=== PATIENT | female | born 1980 | race Asian ===

== ENCOUNTER 2018-04-25 08:09 | Emergency (ER) | payer BC, OTHER ==
[~2018-04-25] VITALS: Ht 157.5 cm; Wt 54.0 kg
--- NOTE | 2018-04-25 08:23 | NUR ---
PT BIB [facility] FOR STERNAL CP THAT RADIATES TO LEFT ARM WITH SOB AND NUMBNESS/TINGLING IN HAND AND FEET. PT WAS GIVEN 2MG MORPHINE, 0.4 MG NITRO, AND 324 ASA. BP 127/91, RR 30, FS 81. PT IS ALERT AND ORIENTED. PT IS CONNECTED TO THE MONITOR. CALL LIGHT WITHIN REACH. MD AT BEDSIDE.
--- NOTE | 2018-04-25 08:26 | NUR ---
PT AMBULATED TO BATHROOM WITH STEADY GAIT.
--- NOTE | 2018-04-25 08:56 | NUR ---
PT AMBULATED TO THE BATHROOM WITH STEADY GAIT. AT BEDSIDE. PT IS ALERT, ORIENTED, WITH NAD.
--- NOTE | 2018-04-25 10:10 | NUR ---
Patient given discharge instructions and they have confirmed that they understand the instructions. Patient ambulatory with steady gait.
[2018-04-25 10:11] VITALS: BP 100/59
== END 2018-04-25 10:11 | disposition home or self-care (01) ==
LOC: ED 09:55
DX: F41.1 Generalized anxiety disorder (principal); R20.2 Paresthesia of skin; E07.9 Disorder of thyroid, unspecified
CPT/HCPCS: 71045; 93005; 99283

== ENCOUNTER → 2018-06-18 | Outpatient (CLI) | payer OTHER ==
[~2018-06-18] MED LIST: None at this Time
[2018-06-18 15:05] LABS: BASOPHILS # (AUTO) 0.03 x10^3/uL (0-0.1); BASOPHILS % (AUTO) 1 % (0-1); EOSINOPHILS # (AUTO) 0.09 x10^3/uL (0-0.4); EOSINOPHILS % (AUTO) 1 % (1-7); LYMPHOCYTES % (AUTO) 32 % (22-44); MD NO; MEAN CORPUSCULAR HEMOGLOBIN 27.4 pg (27.0-34.8); MEAN CORPUSCULAR HGB CONC 32.5 g/dL (32.4-35.8); MEAN CORPUSCULAR VOLUME 84.3 fL (80-100); MEAN PLATELET VOLUME 8.5 fL (7.4-10.4); MONOCYTES # (AUTO) 0.35 x10^3/uL (0.2-0.8); MONOCYTES % (AUTO) 5 % (2-9); NEUTROPHILS # (AUTO) 4.21 x10^3/uL (1.8-6.8); NEUTROPHILS % (AUTO) 61 % (42-75); PLATELET COUNT 282 x10^3/uL (130-400); RED BLOOD COUNT 4.59 x10^6/uL (3.82-5.3); RED CELL DISTRIBUTION WIDTH 14.4 % (9.6-15.2)
[2018-06-18 15:14] LABS: ALBUMIN 3.9 g/dL (3.4-5.0); ANION GAP 6 mmol/L (5-15); CALCIUM 8.7 mg/dL (8.5-10.1); CHLORIDE 106 mmol/L (98-107)
[2018-06-18 15:18] LABS: MICROSCOPIC NOT IND
[2018-06-18 15:19] LABS: ALANINE AMINOTRANSFERASE 24 U/L (12-78); ALKALINE PHOSPHATASE 44 U/L (45-117); BILIRUBIN,TOTAL 0.6 mg/dL (0.2-1.0); CREATININE 0.69 mg/dL (0.55-1.02); TOTAL PROTEIN 7.5 g/dL (6.4-8.2)
[2018-06-18 15:25] LABS: CULTURE INDICATED? NO
== END | disposition home or self-care (01) ==
LOC: STAR 14:05
PROVIDERS: ATTEND Obstetrics & Gynecology
DX: Z01.818 Encounter for other preprocedural examination (principal); N84.0 Polyp of corpus uteri; N83.209 Unspecified ovarian cyst, unspecified side
CPT/HCPCS: 36415; 80053; 81003; 84702; 85025

== ENCOUNTER 2018-06-26 10:21 | Day surgery (SDC) | payer OTHER ==
[2018-06-18 15:00] VITALS: BP 122/78
[~2018-06-26] VITALS: Ht 160 cm; Wt 56.3 kg
[2018-06-26] MEDS ORDERED: LACTATED RINGERS 1,000 ML IV SCH (10:47)
[2018-06-26 10:48] VITALS: BP 122/78
[2018-06-26] MEDS ORDERED: BUPIVACAINE/PF 0.25% ONE (10:55)
[2018-06-26] MEDS ORDERED: EPINEPHRINE 1 MG/ML, 1ML ONE (10:55)
[2018-06-26] MEDS ORDERED: SILVER NITRATE STICK TP ONE (10:55)
[2018-06-26 11:01] LABS: HCG UR SG 1.022 (1.003-1.030)
[2018-06-26] MEDS ORDERED: FENTANYL PF 250 MCG/5ML ONE (12:06)
[2018-06-26] MEDS ORDERED: MIDAZOLAM 1 MG/ML, 2ML ONE (12:06)
[2018-06-26] MEDS ORDERED: SUCCINYLCHOLINE 20 MG/ML, 10ML ONE (12:11)
[2018-06-26] MEDS ORDERED: ROCURONIUM 10MG/ML,5ML ONE (12:11)
[2018-06-26] MEDS ORDERED: DEXAMETHASONE 4 MG/ML, 1ML ONE ×2 (12:11)
[2018-06-26] MEDS ORDERED: LIDOCAINE 2%, 6 ML JEL.PF.APP MM ONE (12:11)
[2018-06-26] MEDS ORDERED: PROPOFOL 10 MG/ML, 20ML ONE (12:11)
[2018-06-26] MEDS ORDERED: ONDANSETRON 2MG/ML, 2ML ONE ×2 (12:11)
[2018-06-26] MEDS ORDERED: NEOSTIGMINE 1 MG/ML, 10ML ONE ×2 (12:32→14:06)
[2018-06-26] MEDS ORDERED: ACETAMINOPHEN 325 MG TABLET PO PRN (13:00)
[2018-06-26] MEDS ORDERED: FENTANYL PF 100 MCG/2ML IV PRN (13:00)
[2018-06-26] MEDS ORDERED: ONDANSETRON 2MG/ML, 2ML IV PRN (13:00)
[2018-06-26] MEDS ORDERED: LABETALOL 5MG/ML, 20ML IV PRN (13:00)
[2018-06-26] MEDS ORDERED: PROMETHAZINE 12.5 MG SUPP PR PRN (13:00)
[2018-06-26] MEDS ORDERED: MORPHINE SULFATE 4 MG/ML, 1ML IVPush PRN (13:00)
[2018-06-26] MEDS ORDERED: OXYcodone 5 MG/5 ML ORAL.SOL UDC PO PRN (13:00)
[2018-06-26] MEDS ORDERED: DIAZEPAM 5 MG/ML, 2ML IVPush PRN (13:00)
[2018-06-26] MEDS ORDERED: ALBUTEROL SULFATE 2.5 MG/3 ML NPPB PRN (13:00)
[2018-06-26] MEDS ORDERED: ONDANSETRON ODT 8 MG PO PRN (13:00)
[2018-06-26] MEDS ORDERED: EPHEDRINE 50 MG/ML, 1ML IVPush PRN (13:00)
[2018-06-26] MEDS ORDERED: MIDAZOLAM 1 MG/ML, 2ML IV PRN (13:00)
[2018-06-26] MEDS ORDERED: HYDROmorphone 2 MG/ML, 1ML IVPush PRN (13:00)
[2018-06-26] MEDS ORDERED: HALOPERIDOL 5 MG/ML IV PRN (13:00)
[2018-06-26] MEDS ORDERED: hydrALAzine 20 MG/ML, 1ML IV PRN (13:00)
[2018-06-26] MEDS ORDERED: PROMETHAZINE 25 MG/ML, 1ML IV PRN (13:00)
[2018-06-26] MEDS ORDERED: MEPERIDINE/PF 25MG/0.5ML IVPush PRN (13:00)
[2018-06-26] MEDS ORDERED: FENTANYL PF 100 MCG/2ML ONE ×2 (13:33→14:54)
[2018-06-26] MEDS ORDERED: OXYcodone 5 MG/5 ML ORAL.SOL UDC ONE (14:53)
[2018-06-26] MEDS ORDERED: MORPHINE SULFATE 4 MG/ML, 1ML ONE (15:09)
== END 2018-06-26 18:00 | disposition home or self-care (01) ==
LOC: OUT 10:21
PROVIDERS: ATTEND Obstetrics & Gynecology
DX: N84.0 Polyp of corpus uteri (principal); N73.6 Female pelvic peritoneal adhesions (postinfective); N83.201 Unspecified ovarian cyst, right side; E11.9 Type 2 diabetes mellitus without complications; I10 Essential (primary) hypertension; Z79.84 Long term (current) use of oral hypoglycemic drugs
CPT/HCPCS: 36415; 58563; 58662; 81025; 86850; 86900; 88305; J0171; J0330; J1100; J2250; J2405; J2704; J2710; J3010; J3490; J7120